=== PATIENT | female | born 1975 | race Two or more races ===

== ENCOUNTER 2017-01-06 23:57 | Emergency (ER) | payer SELFPAY ==
[~2017-01-06] VITALS: Ht 165.1 cm; Wt 84.4 kg
[~2017-01-06 23:57] MED LIST: GLYB2.5T2 PO; HYDR-971 PO; INSU100C4 SQ; METF500T4 PO; NPH,100V SQ; PREN1TAB58 PO
[2017-01-07 00:05] VITALS: BP 124/66
--- NOTE | 2017-01-07 00:20 | PHYS DOC ---
Past Medical History Past Medical History: Diabetes-Type II Past Surgical History: No Surgical History Alcohol Use: None Drug Use: None Adult General Chief Complaint Chief Complaint: EYE PROBLEMS HPI HPI Patient is a 41 year old female with history of diabetes type 2 who presents today with left lateral eye redness that she noted this evening. Patient denies any trauma. Denies any vision loss or pain. Review of Systems Review of Systems Constitutional: Denies fever or chills [] Eyes: left lateral eye redness HENT: Denies nasal congestion or sore throat [] Respiratory: Denies cough or shortness of breath [] Integument: Denies rash or skin lesions [] Neurologic: Denies headache, focal weakness or sensory changes [] Endocrine: Denies polyuria or polydipsia [] Allergies Allergies Allergies Coded Allergies Type Severity Reaction Last Updated Verified No Known Drug Allergies 06/09/14 No Physical Exam Physical Exam Constitutional: Well developed, well nourished, no acute distress, non-toxic appearance. [] HENT: Normocephalic, atraumatic, bilateral external ears normal, oropharynx moist, no oral exudates, nose normal. [] Eyes: PERRLA, EOMI, mild subconjunctival hemorrhage is noted on the left lateral eye, no discharge Neck: Normal range of motion, no tenderness, supple, no stridor. [] Cardiovascular:Heart rate regular rhythm, no murmur [] Lungs & Thorax: Bilateral breath sounds clear to auscultation [] Abdomen: Bowel sounds normal, soft, no tenderness, no masses, no pulsatile masses. [] Skin: Warm, dry, no erythema, no rash. [] Back: No tenderness, no CVA tenderness. [] Extremities: No tenderness, no cyanosis, no clubbing, ROM intact, no edema. [] Neurologic: Alert and oriented X 3, normal motor function, normal sensory function, no focal deficits noted. [] Psychologic: Affect normal, judgement normal, mood normal. [] Current Patient Data Vital Signs Vital Signs Date Time Temp Pulse Resp B/P Pulse Ox O2 Delivery O2 Flow Rate FiO2 01/07/17 00:05 97.6 88 16 99 Room Air 97.6 EKG EKG [] Radiology/Procedures Radiology/Procedures [] Course & Med Decision Making Course & Med Decision Making Pertinent Labs and Imaging studies reviewed. (See chart for details) Patient is in the ED with left subconjunctival hemorrhage. Her blood pressures normal, there is no trauma. She was discharged with indications no subconjunctival hemorrhage. Provided an director of sports medicine for follow-up in one week. Suman Disclaimer Dragon Disclaimer This electronic medical record was generated, in whole or in part, using a voice recognition dictation system. Departure Departure Impression: Primary Impression: Subconjunctival hemorrhage of left eye Disposition: HOME, SELF-CARE Condition: STABLE Referrals: NO PCP (PCP) Brandon EWING MD Follow-up with the provided director of sports medicine next week Patient Instructions: Subconjunctival Hemorrhage-Brief Additional Instructions: You were seen for subconjunctival hemorrhage which is rupture of blood vessel in the eye. Your body will slowly absorbed the extra blood in the eye. Please come to the ED if you develop any vision loss or condition worsens. Follow-up with your doctor or the provided director of sports medicine next week. FINA LYNN APRN Jan 07, 2017 00:20
== END 2017-01-07 00:27 | disposition home or self-care (01) ==
LOC: ER 23:57
DX: H11.32 Conjunctival hemorrhage, left eye (principal); E11.9 Type 2 diabetes mellitus without complications
CPT/HCPCS: 99282